=== PATIENT | male | born 1985 | race Caucasian/White ===

== ENCOUNTER 2019-02-27 12:48 | Emergency (ER) | payer OTHER ==
[2019-02-27 13:22] VITALS: BP 117/72; PULSE 86; RESP 18; TEMP 98.8
[2019-02-27] MEDS ORDERED: ACET/COD 300 MG/30 MG STARTER PACK 6 TAB BTL PO STA (13:54)
--- NOTE | 2019-02-27 13:55 | ED ---
Skin/Abscess/FB HPI - General Chief complaint: Skin/Abscess/Foreign Body Stated complaint: Cyst, Male Time Seen by Provider: 02/27/19 13:41 Source: patient, RN notes reviewed Mode of arrival: ambulatory Limitations: no limitations - History of Present Illness Initial comments: 33-year-old male presents emergency Department chief complaint of abscess in the right side of his scrotum. Patient states that a small abscess that ruptured. Patient states her some redness and drainage. Patient had recurrent lumps and bumps on his skin in which they've been diagnosed with sebaceous or lipomas. Patient denies any fevers or chills patient offers no complaints at this time. - Related Data Previous Rx's Medication Instructions Recorded Cephalexin [Keflex] 500 mg PO Q6HR #28 cap 02/27/19 Ibuprofen [Motrin] 600 mg PO Q8HR PRN #30 tab 02/27/19 Allergies Allergy/AdvReac Type Severity Reaction Status Date / Time No Known Allergies Allergy Verified 02/27/19 13:22 Review of Systems ROS Statement: Those systems with pertinent positive or pertinent negative responses have been documented in the HPI. ROS Other: All systems not noted in ROS Statement are negative. Past Medical History Past Medical History: No Reported History History of Any Multi-Drug Resistant Organisms: None Reported Past Surgical History: No Surgical Hx Reported Past Psychological History: No Psychological Hx Reported Smoking Status: Current every day smoker Past Alcohol Use History: None Reported Past Drug Use History: Marijuana General Exam Limitations: no limitations General appearance: alert, in no apparent distress Head exam: Present: atraumatic, normocephalic, normal inspection Respiratory exam: Present: normal lung sounds bilaterally. Absent: respiratory distress, wheezes, rales, rhonchi, stridor Cardiovascular Exam: Present: regular rate, normal rhythm, normal heart sounds. Absent: systolic murmur, diastolic murmur, rubs, gallop, clicks exam: Absent: normal inspection (Small 0.5 center open abscess on the right sided scrotal and this is superficial there is no evidence of testicular tenderness or mass on his testicle on the right or left side there is a mobile mass the right side consistent with lipoma) Neurological exam: Present: alert, oriented X3 Psychiatric exam: Present: normal affect, normal mood Skin exam: Present: warm, dry, intact, normal color Course Vital Signs 02/27/19 13:19 Temperature 98.8 F Pulse Rate 86 Respiratory 18 Rate Blood Pressure 117/72 O2 Sat by Pulse 100 Oximetry Medical Decision Making - Medical Decision Making 33-year-old male presented emergency dept for lump on his scrotum. Patient has an open abscess weakness and antibiotics. Advised to follow-up with dermatology for his remaining skin masses. Disposition Clinical Impression: Abscess, scrotum Disposition: HOME SELF-CARE Condition: Stable Instructions (If sedation given, give patient instructions): Abscess (ED) Additional Instructions: Please return to the Emergency Department if symptoms worsen or any other concerns. Prescriptions: Cephalexin [Keflex] 500 mg PO Q6HR #28 cap Ibuprofen [Motrin] 600 mg PO Q8HR PRN #30 tab PRN Reason: Pain Is patient prescribed a controlled substance at d/c from ED?: No Referrals: None,Stated [Primary Care Provider] - 1-2 days Lydia Ly MD [STAFF PHYSICIAN] - 1-2 days Time of Disposition: 13:55
== END 2019-02-27 14:12 | disposition home or self-care (01) ==
LOC: EC 12:48
DX: N49.2 Inflammatory disorders of scrotum (principal); R53.1 Weakness; F17.200 Nicotine dependence, unspecified, uncomplicated
CPT/HCPCS: 99282

== ENCOUNTER 2019-06-18 18:16 | Emergency (ER) | payer OTHER ==
[2019-06-18 18:31] VITALS: RESP 18
[2019-06-18] MEDS ORDERED: AMOXIC-POT CLAV 875MG STARTER 2 EACH TABLET PO STA (18:53)
[2019-06-18] MEDS ORDERED: DIPH,PERTUS(ACELL)TETVAC-LF 0.5 ML VIAL IM ONE (18:57)
--- NOTE | 2019-06-18 19:16 | ED ---
General Adult HPI - General Chief complaint: Animal Bite Stated complaint: Arm swelling/cat bite Time Seen by Provider: 06/18/19 18:37 Source: patient, RN notes reviewed Mode of arrival: ambulatory Limitations: no limitations - History of Present Illness Initial comments: 34-year-old male without any significant past medical history presents to the emergency department for a chief complaint of cat Bite. Patient states he was scratched and bitten on the right forearm by his cat. They said this happened yesterday. Today patient started to have some erythema noted along the volar aspect of his forearm states he also noticed some streaking up his forearm so became concerned. Patient is not unsure of his tetanus vaccination status. Patient has not had any fevers or chills. Patient denies any history of diabetes or other immunocompromising states.Patient has no other complaints at this time including shortness of breath, chest pain, abdominal pain, nausea or vomiting, headache, or visual changes. - Related Data Previous Rx's Medication Instructions Recorded Cephalexin [Keflex] 500 mg PO Q6HR #28 cap 02/27/19 Ibuprofen [Motrin] 600 mg PO Q8HR PRN #30 tab 02/27/19 Amoxicillin/Potassium Clav 1 tab PO Q12HR #20 tab 06/18/19 [Augmentin 875-125 Tablet] Allergies Allergy/AdvReac Type Severity Reaction Status Date / Time No Known Allergies Allergy Verified 02/27/19 13:22 Review of Systems ROS Statement: Those systems with pertinent positive or pertinent negative responses have been documented in the HPI. ROS Other: All systems not noted in ROS Statement are negative. Past Medical History Past Medical History: No Reported History History of Any Multi-Drug Resistant Organisms: None Reported Past Surgical History: No Surgical Hx Reported Past Psychological History: No Psychological Hx Reported Smoking Status: Current every day smoker Past Alcohol Use History: None Reported Past Drug Use History: Marijuana General Exam Limitations: no limitations General appearance: alert, in no apparent distress Head exam: Present: atraumatic, normocephalic, normal inspection Eye exam: Present: normal appearance, PERRL, EOMI. Absent: scleral icterus, conjunctival injection, periorbital swelling ENT exam: Present: normal exam, mucous membranes moist Neck exam: Present: normal inspection. Absent: tenderness, meningismus, lymphadenopathy Respiratory exam: Present: normal lung sounds bilaterally. Absent: respiratory distress, wheezes, rales, rhonchi, stridor Cardiovascular Exam: Present: regular rate, normal rhythm, normal heart sounds. Absent: systolic murmur, diastolic murmur, rubs, gallop, clicks Extremities exam: Present: full ROM (Full range of motion of the right hand and right upper extremity), normal capillary refill (Capillary refill less than 2 seconds, radial pulse 2+ in the right upper extremity), other (She does have cellulitic changes noted of the right forearm which extends about 8 cm x 4 cm on the volar aspect. No induration or fluctuance concerning for abscess. He does have slight lymphangitic streaking up to near antecubital fossa. there are superficial scratches noted to patients dorsal forearm). Absent: tenderness, pedal edema, joint swelling, calf tenderness Course Vital Signs 06/18/19 18:28 Temperature 98.3 F Pulse Rate 68 Respiratory 18 Rate Blood Pressure 128/79 O2 Sat by Pulse 98 Oximetry Medical Decision Making - Medical Decision Making Patient is afebrile. Heart rate is 68. He is nontoxic appearing. No evidence for sepsis. The exam is documented in his pertinent for erythema noted of the distal volar forearm with mild streaking near the antecubital fossa. Full range of motion of the right upper extremity. Neurovascular status intact. No evidence of abscess. I did recommend x-ray of the forearm to rule out foreign bodies including cat tooth but he refuses this. States he does not believe this to be the case and understands the risks. Tetanus was updated. Patient states that Is not immunized for rabies however they do have the cat and will be able to monitor for the next 10 days for any signs of rabies as the CDC recommends. I discussed this case with Dr. Wylie, he recommends trying outpatient antibiotics but monitoring closely. I discussed this with patient. Discussed that if the redness spreads significantly or streaking spread significantly he needs to return immediately to the emergency department. He does agree with this. Disposition Clinical Impression: Cat bite, Cellulitis Disposition: HOME SELF-CARE Instructions (If sedation given, give patient instructions): Animal Bite (ED) Additional Instructions: Please take antibiotics as directed. Please monitor for redness that is spreading, or streaking that is spreading and if this is occurring you need to return to the emergency department for IV antibiotics and admission. If you have fevers you need to return as well. Otherwise follow-up with primary care in 1-2 days. Prescriptions: Amoxicillin/Potassium Clav [Augmentin 875-125 Tablet] 1 tab PO Q12HR #20 tab Is patient prescribed a controlled substance at d/c from ED?: No Referrals: Vanna eMjia MD [REFERRING] - 1-2 days Time of Disposition: 19:16
[2019-06-18 19:52] VITALS: BP 120/70; PULSE 67; TEMP 98.2
== END 2019-06-18 19:52 | disposition home or self-care (01) ==
LOC: EC 18:16
DX: L03.113 Cellulitis of right upper limb (principal); F17.200 Nicotine dependence, unspecified, uncomplicated; Z23 Encounter for immunization; W55.01XA Bitten by cat, initial encounter; Z53.29 Procedure and treatment not carried out because of patient's decision for other reasons
CPT/HCPCS: 90471; 90715; 99283